=== PATIENT | male | born 1970 | race American Indian/Alaskan Native ===

== ENCOUNTER 2016-11-25 15:20 | Inpatient (IN) | payer MEDICARE ==
[2016-11-25 19:13] LABS: BUN/Creatinine Ratio 2.85; Calcium 7.2 mg/dL (8.4-10.2); Chloride 86.2 mmol/L (98-107); Potassium 3.3 mmol/L (3.6-5.0)
[2016-11-25 19:15] LABS: Basophils % (Auto) 0.4 % (0.0-1.8); Eosinophils % (Auto) 0.6 % (0.0-4.3); Hemoglobin 8.4 gm/dl (11.8-15.2); Mean Corpuscular HGB Conc 31 % (32-34); Mean Corpuscular Volume 77 fl (84-94); Platelet Count 203 K/mm3 (140-440); Red Blood Count 3.52 M/mm3 (3.65-5.03); White Blood Count 11.6 K/mm3 (4.5-11.0)
[2016-11-25 19:36] LABS: Mean Corpuscular Hemoglobin 24 pg (28-32); Red Cell Distribution Width 20.6 % (13.2-15.2)
[2016-11-25] MEDS ORDERED: NACL 0.9% 1000 ML 1,000 ML IV ONE (20:42)
[2016-11-25] MEDS ORDERED: ZOFRAN IV ONE (20:42)
[2016-11-25] MEDS ORDERED: TYLENOL PO ONE (20:42)
[2016-11-25] MEDS ORDERED: ASPIRIN PO ONE (20:43)
--- NOTE | 2016-11-25 20:48 | Emergency Department Report ---
ED General Adult HPI - General Chief complaint: Dyspnea/Respdistress Stated complaint: BACK PAIN/N/V FEVER/WEIGHT LOSS Time Seen by Provider: 11/25/16 20:27 Source: patient Mode of arrival: Ambulatory Limitations: No Limitations - History of Present Illness Initial comments: 46-year-old gentleman who indicates for the past 2-3 days he's had some generalized malaise. He reports body aches as well. He's had pains in his legs and his left flank area. He describes fever up to 101. He reports anorexia with this as well. He reports some nausea as well. He indicates that he has peritoneal dialysis. He is anuric. He reports as well mild cough. Denies headache. Eyes any chest pain or shortness of breath. Denies any change in his dialysate schedule. Onset/Timin -: days(s) Location: abdomen Radiation: non-radiation Severity scale (0 -10): 10 Quality: dull Consistency: constant Improves with: none Worsens with: none Associated Symptoms: cough, fever/chills, loss of appetite, malaise, nausea/ vomiting - Related Data Home Medications Medication Instructions Recorded Confirmed Last Taken Calcium Carbonate [Calcium] 1 tab PO BID 09/09/13 11/25/16 11/25/16 Cinacalcet HCl [Sensipar] 60 mg PO QHS 09/09/13 11/25/16 11/25/16 Labetalol HCl [Trandate TAB] 300 mg PO BID 09/09/13 11/25/16 11/25/16 NIFEdipine [NIFEdipine ER] 90 mg PO DAILY 09/09/13 11/25/16 11/25/16 Tamsulosin HCl 0.4 mg PO DAILY 09/09/13 11/25/16 11/25/16 Valsartan [Diovan] 160 mg PO BID 09/09/13 11/25/16 11/25/16 cloNIDine [Catapres] 0.1 mg PO DAILY 11/28/14 11/25/16 11/25/16 Sevelamer Carbonate [Renvela] 800 mg PO TIDWM 08/10/16 11/25/16 11/25/16 Allergies Allergy/AdvReac Type Severity Reaction Status Date / Time No Known Allergies Allergy Verified 11/27/14 19:47 ED Review of Systems ROS: Stated complaint: BACK PAIN/N/V FEVER/WEIGHT LOSS Other details as noted in HPI Constitutional: fever, malaise. denies: chills Eyes: denies: eye pain, eye discharge, vision change ENT: denies: ear pain, throat pain Respiratory: cough. denies: shortness of breath, wheezing Cardiovascular: denies: chest pain, palpitations Endocrine: no symptoms reported Gastrointestinal: nausea. denies: abdominal pain, diarrhea, constipation Genitourinary: denies: urgency, dysuria Musculoskeletal: denies: back pain, joint swelling, arthralgia Skin: denies: rash, lesions Neurological: denies: headache, weakness, paresthesias Psychiatric: denies: anxiety, depression Hematological/Lymphatic: denies: easy bleeding, easy bruising ED Past Medical Hx - Past Medical History Previous Medical History?: Yes Hx Hypertension: Yes Hx Renal Disease: Yes (PD patient) Hx HIV: No - Surgical History Past Surgical History?: Yes Additional Surgical History: PD access. Hernia repair. R & L knee surgery - Social History Smoking Status: Never Smoker Substance Use Type: None - Medications Home Medications: Home Medications Medication Instructions Recorded Confirmed Last Taken Type Calcium Carbonate [Calcium] 1 tab PO BID 09/09/13 11/25/16 11/25/16 History Cinacalcet HCl [Sensipar] 60 mg PO QHS 09/09/13 11/25/16 11/25/16 History Labetalol HCl [Trandate TAB] 300 mg PO BID 09/09/13 11/25/16 11/25/16 History NIFEdipine [NIFEdipine ER] 90 mg PO DAILY 09/09/13 11/25/16 11/25/16 History Tamsulosin HCl 0.4 mg PO DAILY 09/09/13 11/25/16 11/25/16 History Valsartan [Diovan] 160 mg PO BID 09/09/13 11/25/16 11/25/16 History cloNIDine [Catapres] 0.1 mg PO DAILY 11/28/14 11/25/16 11/25/16 History Sevelamer Carbonate [Renvela] 800 mg PO TIDWM 08/10/16 11/25/16 11/25/16 History ED Physical Exam - General Limitations: No Limitations General appearance: alert, in distress (mild- appears very fatigued) - Head Head exam: Present: atraumatic, normocephalic - Eye Eye exam: Present: normal appearance, EOMI. Absent: scleral icterus - ENT ENT exam: Present: normal orophraynx, mucous membranes moist - Neck Neck exam: Present: normal inspection - Respiratory Respiratory exam: Present: normal lung sounds bilaterally. Absent: respiratory distress - Cardiovascular Cardiovascular Exam: Present: regular rate, normal rhythm. Absent: systolic murmur, diastolic murmur, rubs, gallop - GI/Abdominal GI/Abdominal exam: Present: soft, normal bowel sounds (distant). Absent: tenderness, guarding - Rectal Rectal exam: Present: deferred - Extremities Exam Extremities exam: Present: normal inspection - Back Exam Back exam: Present: full ROM, tenderness, CVA tenderness (L) - Neurological Exam Neurological exam: Present: alert, oriented X3 - Psychiatric Psychiatric exam: Present: normal affect, normal mood - Skin Skin exam: Present: warm, dry, intact, normal color. Absent: rash ED Course Vital Signs 11/25/16 11/25/16 11/25/16 16:49 19:58 19:59 Temperature 99.4 F 99.2 F Pulse Rate 94 H 84 Respiratory 18 18 Rate Blood Pressure 150/106 Blood Pressure 152/80 [Left] O2 Sat by Pulse 100 96 96 Oximetry 11/25/16 11/25/16 11/25/16 20:00 20:10 20:20 Temperature Pulse Rate 82 81 Respiratory 11 L 13 Rate Blood Pressure 152/80 152/80 150/85 Blood Pressure [Left] O2 Sat by Pulse 95 98 99 Oximetry 11/25/16 11/25/16 11/25/16 20:30 20:40 20:50 Temperature Pulse Rate 81 85 82 Respiratory 14 18 18 Rate Blood Pressure 150/85 161/95 157/89 Blood Pressure [Left] O2 Sat by Pulse 95 95 Oximetry 11/25/16 11/25/16 11/25/16 21:00 21:10 21:20 Temperature Pulse Rate 90 86 89 Respiratory 23 12 18 Rate Blood Pressure 157/89 155/89 165/90 Blood Pressure [Left] O2 Sat by Pulse 98 96 Oximetry 11/25/16 11/25/16 11/25/16 21:30 21:35 21:40 Temperature Pulse Rate 84 83 Respiratory 14 18 15 Rate Blood Pressure 165/90 156/89 Blood Pressure [Left] O2 Sat by Pulse 100 97 Oximetry 11/25/16 11/25/16 11/25/16 21:50 22:00 22:10 Temperature Pulse Rate 88 89 87 Respiratory 20 24 12 Rate Blood Pressure 148/88 148/88 157/84 Blood Pressure [Left] O2 Sat by Pulse 97 96 97 Oximetry 11/25/16 11/25/16 23:14 23:21 Temperature 100.7 F H Pulse Rate 85 Respiratory 23 Rate Blood Pressure 157/84 Blood Pressure [Left] O2 Sat by Pulse 97 98 Oximetry - Reevaluation(s) Reevaluation #1: 11/25/16 20:44 ECG at 1701 demonstrating normal sinus rhythm at 85 bpm with isoelectric normal AR and QRS is noted LVH is noted. With nonspecific ST-T wave changes. ECG is unchanged compared to ECG from 2015 Reevaluation #2: 11/26/16 00:19 I discussed the results back and dialysate fluid it is negative for peritonitis was for fever. Influenza swab was negative as well. Primary reason for wanting to bring this patient is a hospitalist due to the elevated troponin level. Dr. Amezquita contacted and is agreeable with plan. ED Medical Decision Making - Lab Data Result diagrams: 11/25/16 18:06 11/25/16 18:06 Critical care attestation.: If time is entered above; I have spent that time in minutes in the direct care of this critically ill patient, excluding procedure time. ED Disposition Clinical Impression: Cardiac enzymes elevated, End stage renal disease Fever Qualifiers: Fever type: unspecified Qualified Code(s): R50.9 - Fever, unspecified Disposition: OP ADMITTED IP TO THIS HOSP Is pt being admited?: Yes Does the pt Need Aspirin: No Condition: Stable Referrals: DR JOSE GUADALUPE [Other] - 3-5 Days Time of Disposition: 00:20
--- NOTE | 2016-11-25 21:16 | Admit Criteria Form ---
Admission Criteria Documentation: RENAL FAILURE, CHRONIC Clinical Indications for Admission to Inpatient Care (Place 'X' for any and all applicable criteria): Admission is indicated for ANY ONE of the following (1)(2)(3)(4)(5): [X ]I. Inpatient admission required rather than observation care (Use Renal Failure, Chronic: Observation Care Criteria as appropriate) because of ANY ONE of the following: [ ]a) Volume overload or uremic symptoms (eg, clinically significant pulmonary edema, hypertension, pericarditis, acidosis) too severe for, or not responsive (eg, for over 24 hours) to emergency department or observation care dialysis or treatment regimen (11) [ ]b) Hemodynamic instability that is severe or persistent [ ]c) Respiratory distress that is severe or persistent (11) [ ]d) Clinically significant electrolyte abnormality that requires inpatient care (eg,hyperkalemia with severe ECG findings)[B] [ ]e) Supplement O2 or respiratory therapy for over 24hrs that is performable only in acute inpatient setting [ ]f) Continuous IV infusion of anticoagulation, platelet inhibitor, vasoactive, or Antiarrhythmic medication (15), [ ]g) Pulmonary artery catheter monitoring [ ]h) Temporary pacemaker placement [ ]i) Emergent pericardiocentesis [X ]j) Other condition, treatment or monitoring requiring inpatient admission [ ]II. Unexplained syncope [A] [ ]III. Recurrent seizures [ ]IV. Severe infections not treatable in outpatient setting (eg, peritonitis)(9 ) [ ]V. Cardiac arrhythmias of immediate concern [ ]. Encephalopathy [ ]VII.Bleeding abnormalities (eg, platelet dysfunction) with active (eg, gastrointestinal) bleeding Extended stay beyond goal length of stay may be needed for (3)(4)(35)(36): [ ]a) Continuing uremic complications [ ]b) Comorbidities or complications The original [employer] content created by [employer] has been revised. The portions of the content which have been revised are identified through the use of italic text or in bold, and [facility] has neither reviewed nor approved the modified material. All other unmodified content is copyright [employer]. Please see references footnoted in the original [facility] edition 2016 Admission Criteria Met: Yes
[2016-11-26] MEDS ORDERED: ZOFRAN IV PRN (01:32)
[2016-11-26] MEDS ORDERED: PERCOCET 5/325 PO PRN (01:32)
[2016-11-26] MEDS ORDERED: TYLENOL PO PRN (01:32)
[2016-11-26] MEDS ORDERED: DULCOLAX PR PRN (01:32)
--- NOTE | 2016-11-26 01:38 | History and Physical Report ---
History of Present Illness Date of examination: 11/26/16 History of present illness: 46-year-old man with a history of end-stage renal disease on peritoneal dialysis , hypertension comes emergency room with left flank pain, fever, chills. Also complaining of decreased appetite and weight loss 14 pounds over 3 days and shortness of breath Patient denies chest pain, palpitation, shortness of breath, cough, abdominal pain, hematochezia, dysuria, frequency, focal weakness, dysarthria, polydipsia polyuria, hot or cold intolerance, easy bruisability, or rash or bleeding from mucosal membrane, rhinorrhea, epistaxis, earache, tinnitus, blurry vision, eye discharge, anxiety, depression. Other review of systems negative PAST SURGICAL HISTORY: Hernia repair, bilateral knee SOCIAL HISTORY: Denies alcohol, tobacco, drugs FAMILY HISTORY: Hypertention Medications and Allergies Allergies Allergy/AdvReac Type Severity Reaction Status Date / Time No Known Allergies Allergy Verified 11/27/14 19:47 Home Medications Medication Instructions Recorded Confirmed Last Taken Type Calcium Carbonate [Calcium] 1 tab PO BID 09/09/13 11/25/16 11/25/16 History Cinacalcet HCl [Sensipar] 60 mg PO QHS 09/09/13 11/25/16 11/25/16 History Labetalol HCl [Trandate TAB] 300 mg PO BID 09/09/13 11/25/16 11/25/16 History NIFEdipine [NIFEdipine ER] 90 mg PO DAILY 09/09/13 11/25/16 11/25/16 History Tamsulosin HCl 0.4 mg PO DAILY 09/09/13 11/25/16 11/25/16 History Valsartan [Diovan] 160 mg PO BID 09/09/13 11/25/16 11/25/16 History cloNIDine [Catapres] 0.1 mg PO DAILY 11/28/14 11/25/16 11/25/16 History Sevelamer Carbonate [Renvela] 800 mg PO TIDWM 08/10/16 11/25/16 11/25/16 History Ciprofloxacin HCl [Ciprofloxacin 250 mg PO BID #28 tablet 11/26/16 Unknown Rx TAB] oxyCODONE /ACETAMINOPHEN [Percocet 1 tab PO Q6H PRN #20 tablet 11/26/16 Unknown Rx 5/325 mg] Active Meds: Active Medications Ceftriaxone Sodium (Rocephin/Ns 1 Gm/50 Ml) mls @ 100 mls/hr IV Q24H SANTOS Exam - Physical Exam Narrative exam: Gen. appearance: Patient lying in bed, no apparent distress HEENT: Normocephalic, atraumatic, pupils equally round and reactive to light, extraocular movement intact, and no sclericterus,. No JVD or thyromegaly or nodule,neck supple, no carotid bruit ,mucous membranes moist, no exudate or erythema Heart: S1, S2, regular rate and rhythm Lungs: Clear to auscultation bilaterally, breathing comfortable Abdomen: Positive bowel sounds, nontender, nondistended, no organomegaly Extremity: No edema, cyanosis, clubbing Skin: No rash, nodules, warm, dry Neuro: Oriented 3, cranial nerves II-12 intact, speech is fluent, motor and sensory intact - Constitutional Vitals: Temp Pulse Resp BP Pulse Ox 100.7 F H 77 19 140/77 95 11/25/16 23:21 11/26/16 01:00 11/26/16 01:00 11/26/16 01:00 11/26/16 01:00 Results - Labs CBC & Chem 7: 11/25/16 18:06 11/25/16 18:06 Labs: Abnormal lab results 11/25/16 11/25/16 11/25/16 Range/Units 18:06 18:06 21:53 WBC 11.6 H (4.5-11.0) K/mm3 RBC 3.52 L (3.65-5.03) M/mm3 Hgb 8.4 L (11.8-15.2) gm/dl Hct 27.0 L (35.5-45.6) % MCV 77 L (84-94) fl MCH 24 L (28-32) pg MCHC 31 L (32-34) % RDW 20.6 H (13.2-15.2) % Lymph % (Auto) 8.1 L (13.4-35.0) % [place] % (Auto) 11.6 H (0.0-7.3) % Lymph # 0.9 L (1.2-5.4) K/mm3 [place] # 1.3 H (0.0-0.8) K/mm3 Seg Neutrophils % 79.3 H (40.0-70.0) % Seg Neutrophils # 9.2 H (1.8-7.7) K/mm3 Sodium 136 L (137-145) mmol/L Potassium 3.3 L (3.6-5.0) mmol/L Chloride 86.2 L (98-107) mmol/L BUN 54 H (9-20) mg/dL Creatinine 18.9 H (0.8-1.5) mg/dL Glucose 103 H (75-100) mg/dL Calcium 7.2 L (8.4-10.2) mg/dL Troponin T 0.413 H* 0.407 H* (0.00-0.029) ng/mL HDL Cholesterol 38 L (40-59) mg/dL Assessment and Plan SIRS Flank pain Elevated troponin ESRD on PD Hypertension Admits medicine Start empiric IV Rocephin, obtain blood cultures Check CT abdomen and pelvis, echo, cardiac enzymes Consult renal, percocet for pain, start DVT prophylaxis
[2016-11-26] MEDS ORDERED: ROCEPHIN/NS 1 GM/50 ML 1 GM/50 ML BAG IV SCH (02:00)
[2016-11-26] MEDS ORDERED: ROCEPHIN/NS 1 GM/50 ML 1 GM/50 ML BAG IV ONE (02:26)
--- NOTE | 2016-11-26 02:30 | Cat Scan Report ---
FINAL REPORT EXAM: CT ABDOMEN PELVIS WO CON HISTORY: flank pain LEFT TECHNIQUE: CT abdomen and pelvis without contrast. Multiplanar reformations. PRIORS: 07/24/2016 FINDINGS: Solid organ evaluation limited from lack of IV contrast. Lung bases show no significant abnormality. No free intraperitoneal gas seen. Moderate ascites compatible with peritoneal dialysis. Liver shows no significant abnormality. Normal biliary tree. Spleen shows no significant abnormality. Adrenal glands show no significant abnormality. Pancreas shows no significant abnormality. Polycystic kidney disease noted with innumerable bilateral renal cysts with scattered calcifications. There is left perinephric stranding. There is a lesion in the lower pole of left kidney which is heterogeneous and mixed attenuation, some areas of high and low attenuation noted. This measures about 6 x 5 x 5.5 cm, previously was about 4.3 x 4.0 x 3.3 cm. Abdominal aorta is non-aneurysmal. Fat-containing umbilical hernia. No bowel obstruction. Dialysis catheter noted in the pelvis. Appendix not seen with certainty. IMPRESSION: 1. Interval change in the appearance of the lower pole of left kidney, a larger heterogeneous lesion is noted, most likely etiology given fairly recent previous study would be hemorrhagic renal cyst. Renal abscess or renal neoplasm felt to be less likely but not excluded. Consider follow-up with IV contrast for further evaluation. 2. Polycystic kidney disease. Peritoneal dialysis with peritoneal dialysis catheter and ascites.
--- NOTE | 2016-11-26 02:56 | Ultrasound Report ---
FINAL REPORT EXAM: US RENAL BILAT HISTORY: flank pain TECHNIQUE: Complete ultrasound of the kidneys. PRIORS: CT scan from 11/25/2016 FINDINGS: Right kidney measures 9.9 x 5.0 x 5.3 cm. Renal cortex is 1.3 cm thick. Left kidney measures 11.6 x 4.8 x 6.1 cm, renal cortex is 1.8 cm thick. Lesion in the lower pole of left kidney that was visualized on CT is not as well seen on ultrasound, but does not appear particularly vascular suggesting either a neoplasm or hemorrhagic cyst more likely than abscess. Multiple renal cysts bilaterally compatible with polycystic kidney disease. Bladder suboptimally visualized. IMPRESSION: 1. Polycystic kidney disease. Lesion lower pole left kidney better seen on CT, but not particularly vascular on ultrasound suggesting neoplasm or hemorrhagic cyst more likely than abscess. If possible, CT with and without contrast recommended.
[2016-11-26 04:45] LABS: Reactive Lymph Body Fluid 0 %
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
[2016-11-26 08:36] LABS: Creatine Kinase MB 1.9 ng/mL (0.0-4.0)
--- NOTE | 2016-11-26 09:25 | Consultation ---
History of Present Illness - Reason for Consult Consult date: 11/26/16 - History of Present Illness consult dictated. Left flank pain may be due to ruptured /hemorrhagic /infected renal cyst. Clinically stable. CT scan of abdomen, renal ultrasound, CXR reviewed, PD fluid cell count -no significant WBCs-doubt peritonitis. Pt has no vomitings, able to eat. Discussed with --ok to discharge pt on oral Ciprofloxacin 250 mg bid x 2 wks. Spoke with (pt's mother tester) to follow him in PD clinic with follow up on CT scan or renal ultrasound. Medications and Allergies Allergies Allergy/AdvReac Type Severity Reaction Status Date / Time No Known Allergies Allergy Verified 11/27/14 19:47 Home Medications Medication Instructions Recorded Confirmed Last Taken Type Calcium Carbonate [Calcium] 1 tab PO BID 09/09/13 11/25/16 11/25/16 History Cinacalcet HCl [Sensipar] 60 mg PO QHS 09/09/13 11/25/16 11/25/16 History Labetalol HCl [Trandate TAB] 300 mg PO BID 09/09/13 11/25/16 11/25/16 History NIFEdipine [NIFEdipine ER] 90 mg PO DAILY 09/09/13 11/25/16 11/25/16 History Tamsulosin HCl 0.4 mg PO DAILY 09/09/13 11/25/16 11/25/16 History Valsartan [Diovan] 160 mg PO BID 09/09/13 11/25/16 11/25/16 History cloNIDine [Catapres] 0.1 mg PO DAILY 11/28/14 11/25/16 11/25/16 History Sevelamer Carbonate [Renvela] 800 mg PO TIDWM 08/10/16 11/25/16 11/25/16 History Active Meds: Active Medications Acetaminophen (Tylenol) 650 mg PO Q4H PRN PRN Reason: Pain MILD(1-3)/Fever >100.5/PAL Bisacodyl (Dulcolax) 10 mg NE QDAY PRN PRN Reason: Constipation unrelieved by MOM Ceftriaxone Sodium (Rocephin/Ns 1 Gm/50 Ml) 1 gm in 50 mls @ 100 mls/hr IV Q24H SANTOS Last Admin: 11/26/16 02:40 Dose: 100 mls/hr Ondansetron HCl (Zofran) 4 mg IV Q8H PRN PRN Reason: N/V unrelieved by Reglan Oxycodone/Acetaminophen (Percocet 5/325) 1 tab PO Q6H PRN PRN Reason: Pain, Moderate (4-6) Exam - Constitutional Vitals: Temp Pulse Resp BP Pulse Ox 98.4 F 78 12 170/100 98 11/26/16 06:03 11/26/16 06:03 11/26/16 06:03 11/26/16 06:03 11/26/16 06:03 Results - Labs CBC & Chem 7: 11/25/16 18:06 11/25/16 18:06 Labs: Abnormal lab results 11/26/16 Range/Units 08:02 Total Creatine Kinase 444 H (55-170) units/L Troponin T 0.422 H* (0.00-0.029) ng/mL
[2016-11-26] MEDS ORDERED: LOVENOX SUB-Q SCH (10:00)
--- NOTE | 2016-11-26 10:46 | Discharge Summary ---
Providers - Providers Date of Admission: 11/26/16 01:32 Date of discharge: 11/26/16 Attending physician: OWEN GURROLA nephrology Hospitalization Reason for admission: flank pain Condition: Stable Hospital course: This is a 46-year-old male who presented through the emergency department with complaints of left flank pain. Patient underwent CT scan of the abdomen and pelvis which revealed a change in the appearance of the lower pole of left kidney from previous scan. Patient had a larger heterogeneous lesion noted most likely related to hemorrhagic renal cyst. Renal abscess or renal neoplasm felt to be less likely. Scan also revealed polycystic kidney disease and with peritoneal dialysis catheter and ascites. Nephrology saw the patient in consultation and felt that the left flank pain was due to ruptured/hemorrhagic/ infected renal cyst. Patient was clinically stable and no significant leukocytosis therefore peritonitis was unlikely. Nephrology recommended discharge with ciprofloxacin 250 mg twice a day 2 weeks. Patient is to have outpatient follow-up CT scan renal ultrasound. Patient did have elevated troponin which was felt to be secondary to renal disease. Echocardiogram was completed and is pending. Patient is to follow-up with echocardiogram results. Patient denies chest pain. Dedicated discharge time 35 minutes. Disposition: DISCHARGED TO HOME OR SELFCARE - Discharge Diagnoses (1) Ruptured cyst of kidney Status: Acute (2) End stage renal disease Status: Chronic (3) ESRD on peritoneal dialysis Status: Chronic Core Measure Documentation - Palliative Care Palliative Care/ Comfort Measures: Not Applicable - Core Measures Any of the following diagnoses?: none Exam - Constitutional Vitals: Temp Pulse Resp BP Pulse Ox 98.4 F 78 12 170/100 98 11/26/16 06:03 11/26/16 06:03 11/26/16 06:03 11/26/16 06:03 11/26/16 06:03 General appearance: Present: no acute distress, well-nourished - EENT Eyes: Present: PERRL ENT: hearing intact, clear oral mucosa - Neck Neck: Present: supple, normal ROM - Respiratory Respiratory effort: normal Respiratory: bilateral: CTA - Cardiovascular Heart Sounds: Present: S1 & S2. Absent: rub, click - Extremities Extremities: pulses symmetrical, No edema Peripheral Pulses: within normal limits - Abdominal General gastrointestinal: Present: soft, non-tender, non-distended, normal bowel sounds Male genitourinary: Present: normal - Integumentary Integumentary: Present: clear, warm, dry - Musculoskeletal Musculoskeletal: gait normal, strength equal bilaterally - Psychiatric Psychiatric: appropriate mood/affect, intact judgment & insight - Neurologic Neurologic: CNII-XII intact, moves all extremities Plan Activity: no restrictions Weight Bearing Status: Full Weight Bearing Diet: renal Follow up with: DR JOSE GUADALUPE [Other] - 3-5 Days Prescriptions: Ciprofloxacin HCl [Ciprofloxacin TAB] 250 mg PO BID #28 tablet oxyCODONE /ACETAMINOPHEN [Percocet 5/325 mg] 1 tab PO Q6H PRN #20 tablet PRN Reason: Pain, Moderate (4-6)
[2016-11-26 11:29] LABS: Creatine Kinase MB 2.3 ng/mL (0.0-4.0)
[2016-11-26 11:48] VITALS: BP 146/89
--- NOTE | 2016-11-26 11:54 | Consultation ---
REASON FOR CONSULTATION: Renal failure. HISTORY OF PRESENT ILLNESS: This 46-year-old -[place]i male with history of hypertension, end-stage renal disease, on peritoneal dialysis for the past 4-1/2 years, presented to the Emergency Room with left flank pain, fever, nausea, and poor appetite. The patient states that he lost 14 pounds in the past 4-5 days as he is unable to eat. The patient went to the dialysis clinic in [place] yesterday and peritoneal fluid was clear and he was advised to come to the Emergency Room for further evaluation. The patient does peritoneal dialysis with the cycler at night time. He states that his peritoneal fluid has been clear. The patient denies blood in the stools. Denies cold, cough, or sore throat. Feeling weak, loss of appetite. PAST MEDICAL HISTORY: Hypertension, end-stage renal disease, hernia repair. PERSONAL HISTORY: Denies smoking, alcohol, or drug abuse. FAMILY HISTORY: No family history of kidney failure. ALLERGIES: No known allergies. HOME MEDICATIONS: Calcium carbonate 1 twice a day, Sensipar 60 mg once a day, labetalol 300 mg twice a day, nifedipine 90 mg a day, Tamsulosin 0.4 mg once a day, Diovan 160 mg twice a day, clonidine 0.1 mg once a day, Renvela 2 with each meal. REVIEW OF SYSTEMS: Denies chest pain or shortness of breath. The patient denies cold, cough, or sore throat. Denies difficulty swallowing. The patient denies abdomen pain. Complaints of nausea, had low grade fevers, poor appetite, lost 14 pounds in the past 4 days. Denies diarrhea or constipation. Denies GI bleeding. Complains of pain over the left lower back area near the kidney. Denies lifting weight or trauma. Denies swelling of the legs. Complains of cramps in the legs sometimes: REVIEW OF SYSTEMS: All other review of systems reviewed and negative. PHYSICAL EXAMINATION: GENERAL: The patient is alert, oriented, well developed pleasant male, not in acute distress. VITAL SIGNS: Blood pressure 140/77, pulse 77, temperature 100.7. HEENT: Eyes pupils reactive. Conjunctivae pale. Oral mucosa, tongue, and lips are dry. NECK: Supple, no JVD, no thyroid enlargement. LUNGS: Clear. HEART: S1, S2 regular. A 2/6 systolic murmur along the left sternal border. No pericardial rub. ABDOMEN: Soft, bowel sounds present. PD catheter in place. Nontender. EXTREMITIES: No edema. BACK: Mild left CVA tenderness below the lower rib cage. LABORATORY DATA: WBC 11.6, hemoglobin 8.4, hematocrit 27.0, MCV 77, platelets 203. Sodium 136, potassium 3.3, chloride 86, CO2 28, BUN 54, creatinine 18.9, glucose 103, calcium 7.2. Peritoneal fluid, WBC 11, RBC 425. Chest x-rays, no acute findings. Renal ultrasound, multiple bilateral renal cysts, lesion in the lower pole of the left kidney, does not appear vascular. CT scan of the abdomen and pelvis was reported to have enumerable bilateral renal cysts with a scattered calcification, left perinephric stranding, a lesion in the lower pole of the left kidney is heterogeneous and mixed attenuation measuring 6 x 5.5 cm would be hemorrhagic renal cyst. Renal abscess or renal neoplasm was felt to be less likely. ASSESSMENT AND PLAN: 1. Left flank pain, most likely due to ruptured cyst, hemorrhagic cyst, or infected cyst. The patient feels better after receiving IV Rocephin. 2. End stage renal disease. 3. Hypertension. 4. Anemia. 5. Hypocalcemia. 6. Weight loss of 14 pounds in the past 4-5 days. Clinically, does not appear to have acute peritonitis. The patient is able to tolerate oral foods. The patient may go home on oral ciprofloxacin 250 mg p.o. twice a day for 14 days. Follow up on the CT scan of the abdomen and pelvis with contrast after antibiotic course. The patient to resume peritoneal dialysis with cycler at home. Calcium is noted to be 7.2. Check on albumin and ionized calcium. Hold off on Sensipar for now till the calcium levels are better. Discussed with Dr. Mcadams, the hospitalist. Also, discussed with Dr. Preciado, patient's capacitor assembler, who will follow up the patient in the [facility] and get a followup CT scan with contrast in 2 weeks. JOB# [id number] K/ANTONIETA
== END 2016-11-26 11:56 | disposition home or self-care (01) | DRG 699 ==
LOC: ED 15:20 → 4A 11-26 01:32
PROVIDERS: ADMIT Internal Medicine; ATTEND Hospitalist
DX: N28.1 Cyst of kidney, acquired (principal); R65.10 Systemic inflammatory response syndrome (SIRS) of non-infectious origin without acute organ dysfunction; I12.0 Hypertensive chronic kidney disease with stage 5 chronic kidney disease or end stage renal disease; R18.8 Other ascites; N18.6 End stage renal disease; D64.9 Anemia, unspecified; E83.51 Hypocalcemia; Z99.2 Dependence on renal dialysis; Z82.49 Family history of ischemic heart disease and other diseases of the circulatory system; R63.4 Abnormal weight loss; Z68.25 Body mass index [BMI] 25.0-25.9, adult
CPT/HCPCS: 36415; 71020; 74176; 76770; 80048; 80061; 82550; 82553; 84484; 85025; 87040; 87116; 87400; 89051; 93005; 93010; 93306; 96361; 96374; J0696; J2405; J7030

== ENCOUNTER 2017-12-20 19:00 | Emergency (ER) | payer MEDICARE ==
--- NOTE | 2017-12-20 20:21 | Emergency Department Report ---
HPI - General Chief Complaint: Back Pain/Injury Time Seen by Provider: 12/20/17 20:10 - HPI HPI: The patient is a 47-year-old male who presents for evaluation of right back pain since last night, approximately 12 hours ago. He states that his pain began after attempting to pick something up. He believes that he strained a muscle in his back. He states that his back pain is moderate in severity, sharp in quality, exacerbated with movement, and improved at rest. The patient denies blunt trauma to the back, fall, fever, chills, night sweats, saddle anesthesia, paresthesias, numbness or tingling in the legs, leg weakness, difficulty ambulating, or other focal neurological deficits. The patient also denies redness or swelling to the back, IV drug use, history of cancer. ED Past Medical Hx - Past Medical History Hx Hypertension: Yes Hx Renal Disease: Yes (peritoneal dialysis) Hx HIV: No Additional medical history: ANURIC - Surgical History Additional Surgical History: R elbow sx 2016 - Social History Smoking Status: Never Smoker Substance Use Type: None - Medications Home Medications: Home Medications Medication Instructions Recorded Confirmed Last Taken Type Calcium Carbonate [Calcium] 1 tab PO BID 09/09/13 11/25/16 11/25/16 History Cinacalcet HCl [Sensipar] 60 mg PO QHS 09/09/13 11/25/16 11/25/16 History Labetalol HCl [Trandate TAB] 300 mg PO BID 09/09/13 11/25/16 11/25/16 History NIFEdipine [NIFEdipine ER] 90 mg PO DAILY 09/09/13 11/25/16 11/25/16 History Tamsulosin HCl 0.4 mg PO DAILY 09/09/13 11/25/16 11/25/16 History Valsartan [Diovan] 160 mg PO BID 09/09/13 11/25/16 11/25/16 History cloNIDine [Catapres] 0.1 mg PO DAILY 11/28/14 11/25/16 11/25/16 History Sevelamer Carbonate [Renvela] 800 mg PO TIDWM 08/10/16 11/25/16 11/25/16 History Ciprofloxacin HCl [Ciprofloxacin 250 mg PO BID #28 tablet 11/26/16 Unknown Rx TAB] HYDROcodone/APAP 5-325 [[place] 1 each PO Q6HR PRN #10 tablet 12/20/17 Unknown Rx 5-325 mg TAB] ED Review of Systems ROS: Stated complaint: ABDOMINAL PAIN Other details as noted in HPI Constitutional: denies: fever ENT: denies: throat or neck pain Respiratory: denies: cough, shortness of breath Cardiovascular: denies: chest pain Endocrine: denies unexplained weight loss or gain Gastrointestinal: denies: abdominal pain, nausea Genitourinary: denies: dysuria Musculoskeletal: denies: leg swelling Skin: denies: rash Neurological: reports back pain denies: headache Hematological/Lymphatic: denies: easy bleeding or easy bruising Psych: denies sadness or hopelessness Physical Exam - Physical Exam Vital Signs: Vital Signs 12/20/17 19:17 Temperature 99.1 F Pulse Rate 81 Respiratory 18 Rate Blood Pressure 149/87 O2 Sat by Pulse 95 Oximetry Physical Exam: General: well-nourished, well-developed, no acute distress Head: Normocephalic, atraumatic Eyes: normal sclera ENT: Mucous membranes are pink and moist Neck: trachea midline, neck supple, No neck stiffness, no cervical adenopathy Respiratory: Breath sounds equal bilaterally, no wheezing, rales, or rhonchi Cardio: S1 and S2 present, no murmurs, rubs, gallops, capillary refill is brisk Abdomen: Normoactive bowel sounds, soft abdomen, no abdominal tenderness, no CVA tenderness Musc: Tenderness to palpation present to right lower thoracic paraspinal musculature, normal active range of motion at the hip intact, no spinous step- off or obvious deformity, ipsi-lateral and contralateral straight leg raise tests are negative. On extremity testing, compartments are soft and pliable, no obvious gross motor strength deficit, 5+ motor strength, including extension of the great toe bilaterally, no muscular atrophy, spasticity, fasciculations, or clonus, no obvious gross sensation deficit including web space between 1st and 2nd toes, reflexes 2+ & symmetric on DTR testing at the knee and ankle joints, distal pulses intact. Skin: No rash Neuro: no facial drooping, normal speech Psych: Normal affect ED Course Vital Signs 12/20/17 19:17 Temperature 99.1 F Pulse Rate 81 Respiratory 18 Rate Blood Pressure 149/87 O2 Sat by Pulse 95 Oximetry ED Medical Decision Making - Lab Data Result diagrams: 12/20/17 20:39 12/20/17 20:39 - Medical Decision Making The patient was seen and examined by myself. The patient is placed on a cardiac/vascular sonographer and continuous pulse ox. On initial evaluation, the patient was found to be in no distress. Evaluation orders are placed. The patient is given IM dose of morphine for his pain. Lab results revealed elevated BUN/creatinine, at baseline for the patient at consistent with long-standing history of end- stage renal disease. Otherwise labs exhibited normal potassium level. The patient was reevaluated and reported that their symptoms were markedly improved. The patient is stable for discharge with outpatient follow-up. The patient is given follow-up and return instructions. The patient expressed understanding and agreed with the plan. The patient is discharged in stable condition. Critical care attestation.: If time is entered above; I have spent that time in minutes in the direct care of this critically ill patient, excluding procedure time. ED Disposition Clinical Impression: ESRD on peritoneal dialysis, Acute right-sided low back pain without sciatica Disposition: TO HOME OR SELFCARE Is pt being admited?: No Does the pt Need Aspirin: No Condition: Stable Instructions: Chronic Kidney Disease (ED), Low Back Strain (ED), Musculoskeletal Pain (ED) Prescriptions: HYDROcodone/APAP 5-325 [[place] 5-325 mg TAB] 1 each PO Q6HR PRN #10 tablet PRN Reason: Pain Referrals: EDDIE MONTESINOS MD [Primary Care Provider] - 3-5 Days Time of Disposition: 23:17
[2017-12-20 20:58] LABS: Hematocrit 23.5 % (35.5-45.6); Hemoglobin 7.4 gm/dl (11.8-15.2); Mean Corpuscular HGB Conc 31 % (32-34); Mean Corpuscular Volume 77 fl (84-94); Platelet Count 214 K/mm3 (140-440); Red Blood Count 3.05 M/mm3 (3.65-5.03)
[2017-12-20 21:09] LABS: Mean Corpuscular Hemoglobin 24 pg (28-32)
[2017-12-20 21:13] LABS: Calcium 6.8 mg/dL (8.4-10.2)
[2017-12-20] MEDS ORDERED: ZOFRAN ODT PO ONE (22:32)
[2017-12-20] MEDS ORDERED: MORPHINE IM ONE (22:32)
[2017-12-20 22:48] LABS: Band Neutrophils # (Manual) 0.1 K/mm3; Basophils % (Manual) 0 % (0.0-1.8); Total Cells Counted 100
[2017-12-20 22:49] LABS: Anisocytosis 2+; Poikilocytosis 1+
[2017-12-20 22:50] LABS: Hypochromasia 1+; Platelet Estimate Consistent w Auto; Tear Drop Cells Few
[2017-12-20 23:47] VITALS: BP 158/99
== END 2017-12-21 00:07 | disposition home or self-care (01) ==
LOC: ED 19:00
DX: I12.0 Hypertensive chronic kidney disease with stage 5 chronic kidney disease or end stage renal disease (principal); N18.6 End stage renal disease; Z99.2 Dependence on renal dialysis
CPT/HCPCS: 36415; 80048; 82550; 85007; 85025; 96372; 99284; J2270; Q0162

== ENCOUNTER 2018-02-28 21:37 | Emergency (ER) | payer MEDICARE ==
[2018-02-28 23:35] LABS: Hematocrit 22.9 % (35.5-45.6); Hemoglobin 7.2 gm/dl (11.8-15.2); Mean Corpuscular Hemoglobin 23 pg (28-32); Mean Corpuscular Volume 74 fl (84-94); Red Blood Count 3.11 M/mm3 (3.65-5.03)
[2018-02-28 23:36] LABS: Basophils # (Auto) 0.1 K/mm3 (0.0-0.1); Basophils % (Auto) 1.5 % (0.0-1.8); Eosinophils # (Auto) 0.2 K/mm3 (0.0-0.4); Eosinophils % (Auto) 3.1 % (0.0-4.3); Lymphocytes # (Auto) 1.1 K/mm3 (1.2-5.4); Lymphocytes % (Auto) 16.4 % (13.4-35.0); Mean Corpuscular HGB Conc 32 % (32-34); Monocytes # (Auto) 0.9 K/mm3 (0.0-0.8); Monocytes % (Auto) 12.4 % (0.0-7.3); Platelet Count 192 K/mm3 (140-440)
[2018-02-28 23:54] LABS: Albumin 3.5 g/dL (3.9-5)
[2018-03-01 00:14] LABS: Calcium 6.3 mg/dL (8.4-10.2)
--- NOTE | 2018-03-01 00:28 | Emergency Department Report ---
ED Recheck HPI - General Chief Complaint: Recheck/Abnormal Lab/Rx Stated Complaint: LOW BLOOD COUNT Time Seen by Provider: 03/01/18 00:19 Source: patient, old records reviewed Mode of arrival: Ambulatory Limitations: No Limitations - History of Present Illness Initial Comments: 47-year-old male with a past medical history of end-stage renal disease currently on peritoneal dialysis and hypertension presents to the hospital with complaints of anemia. Patient states he had outpatient blood work performed by his dialysis nurse and received a phone call today that his hemoglobin was 5. Patient did receive Epogen yesterday. Patient reports that he does have some lightheadedness when transitioning from a bending down to a sitting up position. However, he denies this and exertion, fatigue, or generalized weakness. No recent melena, hematochezia, or hematemesis. Last blood transfusion was approximately 1.5 years ago. Last hemoglobin on record 2017 with 7.4. No pain reported. - Related Data Home Medications Medication Instructions Recorded Confirmed Last Taken Calcium Carbonate [Calcium] 1 tab PO BID 09/09/13 11/25/16 11/25/16 Cinacalcet HCl [Sensipar] 60 mg PO QHS 09/09/13 11/25/16 11/25/16 Labetalol HCl [Trandate TAB] 300 mg PO BID 09/09/13 11/25/16 11/25/16 NIFEdipine [NIFEdipine ER] 90 mg PO DAILY 09/09/13 11/25/16 11/25/16 Tamsulosin HCl 0.4 mg PO DAILY 09/09/13 11/25/16 11/25/16 Valsartan [Diovan] 160 mg PO BID 09/09/13 11/25/16 11/25/16 cloNIDine [Catapres] 0.1 mg PO DAILY 11/28/14 11/25/16 11/25/16 Sevelamer Carbonate [Renvela] 800 mg PO TIDWM 08/10/16 11/25/16 11/25/16 Previous Rx's Medication Instructions Recorded Last Taken Type Ciprofloxacin HCl [Ciprofloxacin 250 mg PO BID #28 tablet 11/26/16 Unknown Rx TAB] HYDROcodone/APAP 5-325 [[place] 1 each PO Q6HR PRN #10 tablet 12/20/17 Unknown Rx 5-325 mg TAB] Allergies Allergy/AdvReac Type Severity Reaction Status Date / Time No Known Allergies Allergy Verified 02/28/18 22:20 ED Review of Systems ROS: Stated complaint: LOW BLOOD COUNT Other details as noted in HPI Comment: All other systems reviewed and negative ED Past Medical Hx - Past Medical History Previous Medical History?: Yes Hx Hypertension: Yes Hx Renal Disease: Yes (peritoneal dialysis) Hx HIV: No Additional medical history: ANURIC - Surgical History Past Surgical History?: Yes Additional Surgical History: R elbow sx 2016 - Social History Smoking Status: Never Smoker Substance Use Type: None - Medications Home Medications: Home Medications Medication Instructions Recorded Confirmed Last Taken Type Calcium Carbonate [Calcium] 1 tab PO BID 09/09/13 11/25/16 11/25/16 History Cinacalcet HCl [Sensipar] 60 mg PO QHS 09/09/13 11/25/16 11/25/16 History Labetalol HCl [Trandate TAB] 300 mg PO BID 09/09/13 11/25/16 11/25/16 History NIFEdipine [NIFEdipine ER] 90 mg PO DAILY 09/09/13 11/25/16 11/25/16 History Tamsulosin HCl 0.4 mg PO DAILY 09/09/13 11/25/16 11/25/16 History Valsartan [Diovan] 160 mg PO BID 09/09/13 11/25/16 11/25/16 History cloNIDine [Catapres] 0.1 mg PO DAILY 11/28/14 11/25/16 11/25/16 History Sevelamer Carbonate [Renvela] 800 mg PO TIDWM 08/10/16 11/25/16 11/25/16 History Ciprofloxacin HCl [Ciprofloxacin 250 mg PO BID #28 tablet 11/26/16 Unknown Rx TAB] HYDROcodone/APAP 5-325 [[place] 1 each PO Q6HR PRN #10 tablet 12/20/17 Unknown Rx 5-325 mg TAB] ED Physical Exam - General Limitations: No Limitations - Other Other exam information: General: No limitations, patient is alert in no acute distress Head exam: Atraumatic, normocephalic Eyes exam: Normal appearance ENT: Moist mucous membrane, normal oropharynx Neck exam: Normal inspection, full range of motion, no meningismus nontender Respiratory exam: Clear to auscultation bilateral, no wheezes, rales, crackles Cardiovascular: Normal rate and rhythm, normal heart sounds Abdomen: Soft, nondistended, abdominal peritoneal catheter left lower quadrant, nontender abdomen, with normal bowel sounds, no rebound, or guarding Extremity: Full range of motion normal inspection no deformity, bilateral lower extremity edema Back: Normal Inspection, full range of motion, no tenderness Neurologic: Alert, oriented x3, cranial nerves intact, no motor or sensory deficit Psychiatric: normal affect, normal mood Skin: Warm, dry, intact ED Course Vital Signs 02/28/18 03/01/18 22:20 00:27 Temperature 98.7 F 98.0 F Pulse Rate 75 72 Respiratory 16 18 Rate Blood Pressure 140/86 Blood Pressure 170/100 [Left] O2 Sat by Pulse 96 100 Oximetry - Consultations Consultation #1: 03/01/18 00:58 case d/w Dr Velazquez seaweed harvester who states labs resulted at 5.7 from yesterday blood draw. However since repeat value at pt's baseline he may be d/ alisa home. ED Recheck MDM - Core Measures AMI Core Measures Followed: No - Differential Diagnosis anemia of chronic disease, iron deficiency anemia, lab error - Medical Decision Making Pt has minimal sx and hemoglobin similar to previous values. he will be sent home to f/u with his seaweed harvester Critical Care Time: No Critical care attestation.: If time is entered above; I have spent that time in minutes in the direct care of this critically ill patient, excluding procedure time. ED Disposition Clinical Impression: ESRD on peritoneal dialysis, Chronic anemia Disposition: - TO HOME OR SELFCARE Is pt being admited?: No Does the pt Need Aspirin: No Condition: Stable Instructions: End-Stage Kidney Disease (ED), Anemia (ED) Additional Instructions: your hemoglobin (blood count) is around your normal value. You do not require admission and blood transfusion today. Follow up with your seaweed harvester. Return if symptoms worsen. Referrals: STEPHAN FIORE MD [Staff Physician] - 3-5 Days Time of Disposition: :02
[2018-03-01 01:30] VITALS: BP 146/91
== END 2018-03-01 01:30 | disposition home or self-care (01) ==
LOC: ED 21:37
DX: I12.0 Hypertensive chronic kidney disease with stage 5 chronic kidney disease or end stage renal disease (principal); N18.6 End stage renal disease; D63.1 Anemia in chronic kidney disease; Z99.2 Dependence on renal dialysis
CPT/HCPCS: 36415; 80053; 85025; 86850; 86900; 86901; 99283

== ENCOUNTER 2018-03-23 14:44 | Emergency (ER) | payer MEDICARE ==
[2018-03-23 16:42] LABS: Hematocrit 22.9 % (35.5-45.6); Hemoglobin 7.5 gm/dl (11.8-15.2); Mean Corpuscular HGB Conc 33 % (32-34); Mean Corpuscular Volume 76 fl (84-94); Platelet Count 269 K/mm3 (140-440); Red Blood Count 3.04 M/mm3 (3.65-5.03)
[2018-03-23 16:44] LABS: Mean Corpuscular Hemoglobin 25 pg (28-32); Red Cell Distribution Width 25.2 % (13.2-15.2)
[2018-03-23 16:49] LABS: Partial Thromboplastin Time 36.5 Sec. (24.2-36.6)
[2018-03-23 17:04] LABS: Albumin 3.4 g/dL (3.9-5); Calcium 7.2 mg/dL (8.4-10.2)
[2018-03-23 17:33] LABS: Basophils % (Manual) 0 % (0.0-1.8); Total Cells Counted 100
[2018-03-23 17:34] LABS: RBC Morphology Normal
[2018-03-23] MEDS ORDERED: CATAPRES PO ONE (22:04)
[2018-03-23] MEDS ORDERED: NORMODYNE PO ONE (22:04)
--- NOTE | 2018-03-23 22:58 | Emergency Department Report ---
ED General Adult HPI - General Chief complaint: Weakness Stated complaint: WEAKNESS Time Seen by Provider: 03/23/18 22:52 Source: patient Mode of arrival: Ambulatory Limitations: No Limitations - History of Present Illness Initial comments: 48-year-old patient with end-stage renal disease, home peritoneal dialysis daily , sent for evaluation by health nurse, who reports that hemoglobin level was low today at 6.7 g. Patient has recurrent bouts of anemia, has been previously treated with Epogen, gets weekly hemoglobin counts, last was on Friday, and this was reason for called by the dialysis nurse today. Patient was Evaluated here one month ago for same complaints, but found to have stable hemoglobin at that evaluation and was also discharged at that time. Patient performed some dialysis nightly, with 4 cycles each evening, works during the day, and has no difficulty performing his regular duties with no lightheadedness or weakness. Patient has no other complaints. Severity scale (0 -10): 0 - Related Data Home Medications Medication Instructions Recorded Confirmed Last Taken Calcium Carbonate [Calcium] 1 tab PO BID 09/09/13 11/25/16 11/25/16 Cinacalcet HCl [Sensipar] 60 mg PO QHS 09/09/13 11/25/16 11/25/16 Labetalol HCl [Trandate TAB] 300 mg PO BID 09/09/13 11/25/16 11/25/16 NIFEdipine [NIFEdipine ER] 90 mg PO DAILY 09/09/13 11/25/16 11/25/16 Tamsulosin HCl 0.4 mg PO DAILY 09/09/13 11/25/16 11/25/16 Valsartan [Diovan] 160 mg PO BID 09/09/13 11/25/16 11/25/16 cloNIDine [Catapres] 0.1 mg PO DAILY 11/28/14 11/25/16 11/25/16 Sevelamer Carbonate [Renvela] 800 mg PO TIDWM 08/10/16 11/25/16 11/25/16 Previous Rx's Medication Instructions Recorded Last Taken Type Ciprofloxacin HCl [Ciprofloxacin 250 mg PO BID #28 tablet 11/26/16 Unknown Rx TAB] HYDROcodone/APAP 5-325 [[place] 1 each PO Q6HR PRN #10 tablet 12/20/17 Unknown Rx 5-325 mg TAB] Allergies Allergy/AdvReac Type Severity Reaction Status Date / Time No Known Allergies Allergy Verified 02/28/18 22:20 ED Review of Systems ROS: Stated complaint: WEAKNESS Other details as noted in HPI Comment: All other systems reviewed and negative Constitutional: denies: chills, fever ENT: denies: ear pain, throat pain Respiratory: denies: cough, shortness of breath, wheezing Cardiovascular: denies: chest pain, palpitations Endocrine: no symptoms reported Gastrointestinal: denies: abdominal pain, nausea, diarrhea Genitourinary: denies: urgency, dysuria Musculoskeletal: denies: back pain, joint swelling, arthralgia Skin: denies: rash, lesions Neurological: denies: headache, weakness, paresthesias Psychiatric: denies: anxiety, depression Hematological/Lymphatic: denies: easy bleeding, easy bruising ED Past Medical Hx - Past Medical History Previous Medical History?: Yes Hx Hypertension: Yes Hx Renal Disease: Yes (peritoneal dialysis) Hx HIV: No Additional medical history: ANURIC - Surgical History Past Surgical History?: Yes Additional Surgical History: R elbow sx 2017 Peritoneal Catheter - Social History Smoking Status: Never Smoker Substance Use Type: None - Medications Home Medications: Home Medications Medication Instructions Recorded Confirmed Last Taken Type Calcium Carbonate [Calcium] 1 tab PO BID 09/09/13 11/25/16 11/25/16 History Cinacalcet HCl [Sensipar] 60 mg PO QHS 09/09/13 11/25/16 11/25/16 History Labetalol HCl [Trandate TAB] 300 mg PO BID 09/09/13 11/25/16 11/25/16 History NIFEdipine [NIFEdipine ER] 90 mg PO DAILY 09/09/13 11/25/16 11/25/16 History Tamsulosin HCl 0.4 mg PO DAILY 09/09/13 11/25/16 11/25/16 History Valsartan [Diovan] 160 mg PO BID 09/09/13 11/25/16 11/25/16 History cloNIDine [Catapres] 0.1 mg PO DAILY 11/28/14 11/25/16 11/25/16 History Sevelamer Carbonate [Renvela] 800 mg PO TIDWM 08/10/16 11/25/16 11/25/16 History Ciprofloxacin HCl [Ciprofloxacin 250 mg PO BID #28 tablet 11/26/16 Unknown Rx TAB] HYDROcodone/APAP 5-325 [[place] 1 each PO Q6HR PRN #10 tablet 12/20/17 Unknown Rx 5-325 mg TAB] ED Physical Exam - General Limitations: No Limitations General appearance: alert, in no apparent distress - Head Head exam: Present: atraumatic, normocephalic - Eye Eye exam: Present: PERRL, EOMI - ENT ENT exam: Present: normal exam - Neck Neck exam: Present: normal inspection. Absent: tenderness - Respiratory Respiratory exam: Present: normal lung sounds bilaterally. Absent: respiratory distress, wheezes, rales, rhonchi, chest wall tenderness - Cardiovascular Cardiovascular Exam: Present: regular rate, normal heart sounds. Absent: S3, S4 - GI/Abdominal GI/Abdominal exam: Present: soft, other (peritoneal dialysis catheter present mid abdomen) - Rectal Rectal exam: Present: deferred - Extremities Exam Extremities exam: Present: normal inspection. Absent: pedal edema ED Course Vital Signs 03/23/18 03/23/18 03/23/18 15:24 20:25 22:01 Temperature 98.6 F 97.6 F 97 F L Pulse Rate 72 72 72 Respiratory 20 18 16 Rate Blood Pressure 148/88 199/122 Blood Pressure 202/125 [Left] O2 Sat by Pulse 97 99 98 Oximetry 03/23/18 03/23/18 03/23/18 22:19 22:20 22:59 Temperature Pulse Rate 72 72 59 L Respiratory 16 Rate Blood Pressure 175/92 175/92 Blood Pressure 167/101 [Left] O2 Sat by Pulse 96 Oximetry 03/23/18 23:56 Temperature Pulse Rate 60 Respiratory 16 Rate Blood Pressure Blood Pressure 151/95 [Left] O2 Sat by Pulse 96 Oximetry ED Medical Decision Making - Lab Data Result diagrams: 03/23/18 16:15 03/23/18 16:15 - Medical Decision Making This end stage renal disease patient with home peritoneal dialysis, was referred for evaluation of possible low hemoglobin and need for transfusion, with a reported 6.7 g hemoglobin from dialysis, but evaluation in emergency department shows hemoglobin of 7.5 g, patient is stable physically, good vital signs with blood pressure 159/72, heart rate 68, and in no acute distress, with a normal examination with clear lung reilly, normal heart beat, in no acute distress. He does not need transfusion, and is stable for discharge home, and as he is performing his regular work duties, needs no restrictions either. He gets weekly checks by his health nurse, and next examination as scheduled in 3 days. He may follow as currently scheduled. - Differential Diagnosis anemia, severe anemia Critical Care Time: No Critical care attestation.: If time is entered above; I have spent that time in minutes in the direct care of this critically ill patient, excluding procedure time. ED Disposition Clinical Impression: Anemia, chronic renal failure Qualifiers: Chronic kidney disease stage: unspecified stage Qualified Code(s): N18.9 - Chronic kidney disease, unspecified; D63.1 - Anemia in chronic kidney disease Disposition: DC- TO HOME OR SELFCARE Is pt being admited?: No Does the pt Need Aspirin: No Condition: Stable Additional Instructions: Blood work is stable today, hemoglobin is 7.5 g, and you do not need transfusion today. You may continue to follow with your regular activities, vital signs are stable , but we are recommend rest for the next 2 days, and observe if you develop any additional symptoms. Please recheck with your dialysis nurse for regular blood work as previously scheduled. Referrals: PRIMARY CAREMD [Primary Care Provider] - 3-5 Days Forms: Work/School Release Form(ED) Time of Disposition: 00:49
[2018-03-24 00:48] VITALS: BP 152/94
== END 2018-03-24 00:56 | disposition home or self-care (01) ==
LOC: ED 14:44
DX: I12.0 Hypertensive chronic kidney disease with stage 5 chronic kidney disease or end stage renal disease (principal); N18.6 End stage renal disease; D64.9 Anemia, unspecified; Z99.2 Dependence on renal dialysis
CPT/HCPCS: 36415; 80053; 85007; 85025; 85610; 85730; 86850; 86900; 86901; 99284

== ENCOUNTER 2020-04-21 08:50 | Emergency (ER) | payer MEDICARE, OTHER ==
[2020-04-21 09:05] VITALS: BP 133/89
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
--- NOTE | 2020-04-21 11:59 | XRay Report ---
XR toe(s) 2+V RT INDICATION / CLINICAL INFORMATION: pain to big toe. COMPARISON: None available. FINDINGS: BONES/JOINT(S): No acute fracture or subluxation. No significant degenerative changes. No focal bone destruction to suggest osteomyelitis. SOFT TISSUES: No radiopaque foreign body or soft tissue gas identified. ADDITIONAL FINDINGS: None. Signer Name: Dez Ayala MD Signed: 04/21/2020 11:55 AM Workstation Name: [id number]
== END 2020-04-21 12:12 | disposition home or self-care (01) ==
LOC: ED 08:50
DX: M79.674 Pain in right toe(s) (principal); I10 Essential (primary) hypertension; Z79.899 Other long term (current) drug therapy; Z98.890 Other specified postprocedural states; V49.49XA Driver injured in collision with other motor vehicles in traffic accident, initial encounter; Y93.89 Activity, other specified; Y92.488 Other paved roadways as the place of occurrence of the external cause; Y99.8 Other external cause status
CPT/HCPCS: 99283